=== PATIENT | male | born 1965 | race Caucasian/White ===

== ENCOUNTER 2018-05-02 15:26 | Emergency (ER) | payer BC ==
[2018-05-02 15:48] VITALS: BP 117/73
[2018-05-02] MEDS ORDERED: HYDROmorphone 1 MG/ML Syringe IM ONE (16:28)
[2018-05-02] MEDS ORDERED: LORazepam 2 MG/ML SDV IM ONE (16:28)
--- NOTE | 2018-05-02 17:01 | EDM.PDOC ---
ED HPI GENERAL MEDICAL PROBLEM - General Chief Complaint: Back Pain or Injury Stated Complaint: BACK SPASMS Time Seen by Provider: 05/02/18 16:20 Source of Information: Reports: Patient History Limitations: Reports: No Limitations - History of Present Illness INITIAL COMMENTS - FREE TEXT/NARRATIVE: 53-year-old male with chronic recurring low back problems, spasms, who is usually controlled with naproxen and cyclobenzaprine. He woke up this morning and was having a spasm, got half way to work and turned around and went home, took his medicine and laid down but when he got up he had to have his dad help him out of bed. He is now feeling a little better but knows if he doesn't get stronger treatment it will continue to spasm for the next several days. Severity: Moderate Associated Symptoms: Reports: No Other Symptoms back pain Pain Score (Numeric/FACES): 5 - Related Data Allergies Allergy/AdvReac Type Severity Reaction Status Date / Time morphine Allergy Other Verified 05/02/18 15:55 Home Meds: Home Meds Naproxen 500 mg PO Q12HR PRN 04/07/16 [History] Cyclobenzaprine [Flexeril] 10 mg PO ASDIRECTED 05/02/18 [History] Past Medical History - Past Health History Medical/Surgical History: Denies Medical/Surgical History Musculoskeletal History: Reports: Arthritis, Back Pain, Chronic Psychiatric History: Reports: Anxiety, Depression Social & Family History - Tobacco Use Smoking Status *Q: Never Smoker - Recreational Drug Use Recreational Drug Use: No ED ROS GENERAL - Review of Systems Review Of Systems: See Below Constitutional: Denies: Fever Respiratory: Denies: Shortness of Breath, Cough Cardiovascular: Denies: Chest Pain GI/Abdominal: Denies: Abdominal Pain Musculoskeletal: Reports: Back Pain Skin: Reports: No Symptoms Neurological: Denies: Paresthesia Psychiatric: Reports: Anxiety ED EXAM,LOWER BACK PAIN/INJURY - Physical Exam Exam: See Below Exam Limited By: No Limitations General Appearance: Alert, No Apparent Distress (Looks uncomfortable but not distressed) Respiratory/Chest: No Respiratory Distress Cardiovascular: Regular Rate, Rhythm Back Exam: Muscle Spasm, Paraspinal Tenderness, Other (Muscles are very tight and tender to palpation over the lumbar spine both sides. He has increased pain with rotation to the left against resistance. Also increased pain against flexion against resistance. Straight leg raising causes increased pain but no radiculopathy). No: Vertebral Tenderness Course - Vital Signs Last Recorded V/S: Last Vital Signs Temp 97.7 F 05/02/18 15:55 Pulse 68 05/02/18 15:55 Resp 16 05/02/18 15:55 BP 117/73 05/02/18 15:55 Pulse Ox 98 05/02/18 15:55 - Orders/Labs/Meds Meds: Medications Discontinued Medications Generic Name Dose Route Start Last Admin Trade Name Robert PRN Reason Stop Dose Admin Hydromorphone HCl 1 mg 05/02/18 16:28 05/02/18 16:35 Dilaudid IM 05/02/18 16:29 1 mg ONETIME ONE Administration Lorazepam 1 mg 05/02/18 16:28 05/02/18 16:35 Ativan IM 05/02/18 16:29 1 mg ONETIME ONE Administration - Re-Assessments/Exams Free Text/Narrative Re-Assessment/Exam: 05/02/18 17:01 Patient was given 1 mg of Dilaudid and 1 mg of Ativan IM. A [facility] RHEUMATOLOG[facility] search was done and was negative. 05/02/18 17:07 20 minutes after the medications he was feeling better. He was discharged to the care of his father who will drive him home. Recheck in the next 24-48 hours if not improving satisfactorily, continue your regular medications. Departure - Departure Time of Disposition: 17:46 Disposition: Home, Self-Care 01 Condition: Good Clinical Impression: Acute exacerbation of chronic low back pain - Discharge Information Instructions: Back Pain, Adult, [id number] Referrals: PCP,None [Primary Care Provider] - Forms: ED Department Discharge Care Plan Goals: Continue your regular medications, and try to resume her regular activity as soon as possible. Recheck in the next 24-48 hours if not improving satisfactorily. It is likely you will have some lingering back discomfort for the next several days.
== END 2018-05-02 17:46 | disposition home or self-care (01) ==
LOC: JP.ED 15:26
DX: M54.5 Low back pain (principal); G89.29 Other chronic pain; Z88.5 Allergy status to narcotic agent
CPT/HCPCS: 96372; 99283; J1170; J2060

== ENCOUNTER 2024-05-06 11:00 | Emergency (ER) | payer MEDICAID, MEDICARE ==
[2024-05-06 11:36] VITALS: BP 127/74; PULSE 79
[2024-05-06] MEDS: LORazepam 2 MG/ML SDV IM ONE (12:42)
[2024-05-06] MEDS: HYDROmorphone 1 MG/ML Syringe IM ONE (12:43)
== END 2024-05-06 13:15 | disposition home or self-care (01) ==
LOC: JP.ED 11:00
DX: M54.50 Low back pain, unspecified (principal); G89.29 Other chronic pain; F17.210 Nicotine dependence, cigarettes, uncomplicated; Z79.899 Other long term (current) drug therapy
CPT/HCPCS: 96372; 99283; J1170; J2060

== ENCOUNTER 2024-12-06 12:17 | Emergency (ER) | payer OTHER, MEDICARE ==
[2024-12-06 12:27] VITALS: PULSE 78
[2024-12-06 12:51] VITALS: BP 136/82
== END 2024-12-06 13:39 | disposition home or self-care (01) ==
LOC: JP.ED 12:17
DX: J40 Bronchitis, not specified as acute or chronic (principal); Z88.5 Allergy status to narcotic agent; Z79.899 Other long term (current) drug therapy
CPT/HCPCS: 99283; U0002